=== PATIENT | male | born 1970 | race Caucasian/White ===

== ENCOUNTER 2022-07-10 09:47 | Emergency (ER) | payer BC, OTHER ==
[~2022-07-10] VITALS: Ht 180.3 cm; Wt 108.9 kg
[2022-07-10 09:53] VITALS: BP 152/87
--- NOTE | 2022-07-10 10:03 | ED Back Pain ---
General Chief Complaint: Back Problems Stated Complaint: BACK PAIN History of Present Illness Date Seen by Provider: Jul 10, 2022 Time Seen by Provider: 09:58 Initial Comments 52-year-old male here with complaints of sudden onset back pain. Patient has done this before years ago. States he was helping his [id number] who is in a wheelchair to get to a doctor's appointment the clinic and when he got him out he felt some twinges of pain and had a severe amount of pain in the lower back. States he feels like he pulled the muscles back there. No radiation of pain down the legs or up the back. This radiates in the lower back from the side. Noticed pain with straight leg raise. No loss of bowel or bladder. No numbness tingling in the genital area. Allergies and Home Medications Allergies Coded Allergies: No Known Drug Allergies (Unverified , 07/10/22) Patient Home Medication List Home Medication List Reviewed: Yes Cyclobenzaprine HCl (Cyclobenzaprine HCl) 10 Mg Tablet, 10 MG PO HS Prescribed by: Cheryl Stone on 07/10/22 1008 Ibuprofen (Ibuprofen) 800 Mg Tablet, 800 MG PO Q8H PRN for PAIN-MILD Prescribed by: Cheryl Stone on 07/10/22 1008 Review of Systems Constitutional: see HPI Past Koylxez-Jnesbo-Hhnxyv Hx Patient Social History Tobacco Use?: No Physical Exam Vital Signs Vital Signs - First Documented 07/10/22 09:53 Temp 36.3 Pulse 77 Resp 18 B/P (MAP) 152/87 (108) Pulse Ox 98 O2 Delivery Room Air Capillary Refill : Height, Weight, BMI Height: '" Weight: lbs. oz. kg; BMI Method: General Appearance: Mild Distress Back: Normal Inspection, Muscle Spasm, Vertebral Tenderness Neurologic/Psychiatric: Alert, Oriented x3, No Motor/Sensory Deficits Skin: Normal Color, Warm/Dry Progress/Results/Core Measures Results/Orders My Orders Orders - CHERYL STONE MD Ketorolac Injection (Toradol Injection) (07/10/22 10:15) Ketorolac Injection (Toradol Injection) (07/10/22 10:12) Medications Given in ED Current Medications Medications Dose Ordered Sig/Daisy Route Start Time Stop Time Status Last Admin Dose Admin Ketorolac Tromethamine 60 mg ONCE ONCE IM 07/10/22 10:15 07/10/22 10:18 DC 07/10/22 10:17 60 MG Vital Signs/I&O 07/10/22 09:53 Temp 36.3 Pulse 77 Resp 18 B/P (MAP) 152/87 (108) Pulse Ox 98 O2 Delivery Room Air Progress Progress Note : Time: 10:35 Progress Note Feeling somewhat better. We will plan to discharge home with NSAIDs and muscle relaxer. Patient to follow-up with primary care Departure Impression Primary Impression: Lumbar sprain Qualified Codes: S33.5XXA - Sprain of ligaments of lumbar spine, initial encounter Disposition: HOME, SELF-CARE Condition: Improved Departure-Patient Inst. Decision time for Depature: 10:35 Referrals: NO,LOCAL PHYSICIAN (PCP/Family) Primary Care Physician Patient Instructions: Low Back Pain (DC), Back Muscle Strain (DC), Using Cold for Pain Scripts Cyclobenzaprine HCl (Cyclobenzaprine HCl) 10 Mg Tablet 10 MG PO HS for 10 Days, #10 TAB 0 Refills Prov: CHERYL STONE MD 07/10/22 Ibuprofen (Ibuprofen) 800 Mg Tablet 800 MG PO Q8H PRN for PAIN-MILD, #30 TAB Prov: CHERYL STONE MD 07/10/22 CHERYL STONE MD Jul 10, 2022 10:03
[2022-07-10] MEDS ORDERED: IBUP-1780 PO (10:08)
[2022-07-10] MEDS ORDERED: CYCL10TA25 PO (10:08)
[2022-07-10] MEDS ORDERED: KETOROLAC 60 MG/2 ML VIAL ONE (10:12)
[2022-07-10] MEDS ORDERED: KETOROLAC 60 MG/2 ML VIAL IM ONE (10:15)
== END 2022-07-10 10:38 | disposition home or self-care (01) ==
LOC: ER FS 09:49
DX: S33.5XXA Sprain of ligaments of lumbar spine, initial encounter (principal); Z28.310 Unvaccinated for COVID-19; X58.XXXA Exposure to other specified factors, initial encounter
CPT/HCPCS: 99284